=== PATIENT | female | born 1965 | race Caucasian/White ===

== ENCOUNTER → 2022-08-02 | Day surgery (SDC) | payer OTHER ==
[~2022-08-02] MED LIST: LIDOCAINE HCL 2% LOCAL INJ 5 ML SDV VIAL INJ ONE; NP THYROID60 MG PO; PROPOFOL IV EMULSION 10 MG/ML 50 ML VIAL IV ONE; PROPOFOL IV EMULSION 50 ML IV ONE
== END | disposition home or self-care (01) ==
LOC: ENDO 07:03
PROVIDERS: ATTEND Surgery
DX: K21.9 Gastro-esophageal reflux disease without esophagitis (principal); K29.50 Unspecified chronic gastritis without bleeding; K20.90 Esophagitis, unspecified without bleeding; K44.9 Diaphragmatic hernia without obstruction or gangrene; E03.9 Hypothyroidism, unspecified; I10 Essential (primary) hypertension; E78.5 Hyperlipidemia, unspecified; E66.01 Morbid (severe) obesity due to excess calories; J30.2 Other seasonal allergic rhinitis; R06.02 Shortness of breath; Z01.810 Encounter for preprocedural cardiovascular examination; Z79.899 Other long term (current) drug therapy; Z68.34 Body mass index [BMI] 34.0-34.9, adult
CPT/HCPCS: 43239; 88305; 88342; 93005; J2001; J2704; 43235

== ENCOUNTER 2022-09-06 08:13 | Observation (INO) | payer OTHER ==
[2022-09-01 14:50] LABS: BASOPHILS % 0.6 % (0.0-1.0); EOSINOPHILS # (AUTO) 0.3 (0.0-0.4); EOSINOPHILS % 3.8 % (0.0-6.0); HEMATOCRIT 43.3 % (34.2-44.1); HEMOGLOBIN 14.1 g/dL (12.0-16.0); LYMPHOCYTES # (AUTO) 1.7 (1.0-3.2); LYMPHOCYTES % 25.8 % (18.0-39.1); MEAN CORPUSCULAR HEMOGLOBIN 31.4 pg (28-32); MEAN CORPUSCULAR HGB CONC 32.6 g/dL (31-35); MEAN CORPUSCULAR VOLUME 96.4 fL (81-99); MONOCYTES # (AUTO) 0.4 (0.2-0.8); MONOCYTES % 6.1 % (4.4-11.3); NEUTROPHILS # (AUTO) 4.2 (2.1-6.9); NEUTROPHILS % 63.5 % (38.7-80.0); PLATELET COUNT 235 x10e3/uL (140-360); RED BLOOD COUNT 4.49 x10e6/uL (3.6-5.1)
[~2022-09-06] VITALS: Ht 177.8 cm; Wt 99.8 kg
[~2022-09-06 08:13] MED LIST changes: +ACETAMINOPHEN 1000 MG/100 ML 100 ML IV ONE; +BUPIVACAINE 0.25% 30ML SDV ONE; +BUPIVACAINE 0.5%/EPI 30 ML SDV INJ ONE; +CEFAZOLIN SODIUM 2 GM ONE; +FLONASE ALLERG9.9 ML INH; +LACTATED RINGER'S 1,000 ML ONE; -LIDOCAINE HCL 2% LOCAL INJ 5 ML SDV VIAL INJ ONE; -PROPOFOL IV EMULSION 10 MG/ML 50 ML VIAL IV ONE; -PROPOFOL IV EMULSION 50 ML IV ONE; +SCOPOLAMINE 1 MG PATCH ONE; +SCOPOLAMINE 1 MG PATCH TOP SCH; +SINGULAIR4 MG PO; +SUGAMMADEX SODIUM 200 MG/2 ML VIAL IV ONE; +ZYRTEC10 M3 PO
[2022-09-06] MEDS ORDERED: FENTANYL CITRATE/PF 100MCG/2 ML INJ ONE ×2 (10:30→13:38)
[2022-09-06] MEDS ORDERED: ONDANSETRON HCL INJ 2MG/ML 2ML 2 MG/ML VIAL ONE ×2 (10:47→12:30)
[2022-09-06 11:00] VITALS: BP 112/69
[2022-09-06] MEDS: LACTATED RINGER'S 1,000 ML IV SCH ×3 (11:00→21:40)
[2022-09-06] MEDS ORDERED: FIBRIN FROZEN 2 ML SPRAY.GEL TOP ONE (11:01)
[2022-09-06] MEDS ORDERED: FLUTICASONE PROPIONATE NASAL SPRAY NS PRN (12:15)
[2022-09-06] MEDS ORDERED: POVIDONE IODINE 0.05% 0.05 % ML PO ONE (12:30)
[2022-09-06] MEDS ORDERED: ALBUTEROL SULFATE HFA 8GM INHALATION AEROSOL INH ONE (12:30)
[2022-09-06] MEDS ORDERED: LIDOCAINE HCL 2% LOCAL INJ 5 ML SDV VIAL INJ ONE (12:30)
[2022-09-06] MEDS ORDERED: ROCURONIUM BROMIDE 10 MG/ML 5ML VIAL IV ONE (12:30)
[2022-09-06] MEDS ORDERED: PROPOFOL IV EMULSION 10 MG/ML 20 ML VIAL ONE (12:30)
[2022-09-06] MEDS ORDERED: DEXAMETHASONE SOD PHOS INJ 4 MG/ML SDV ONE (12:30)
[2022-09-06] MEDS ORDERED: SEVOFLURANE INHAL SOLN 250 ML PEN BTL ONE (12:30)
[2022-09-06] MEDS: ONDANSETRON HCL INJ 2MG/ML 2ML 2 MG/ML VIAL IV PRN ×2 (14:17→21:39)
[2022-09-06] MEDS: Morphine 2mg Syringe 2 MG/ML SYR IV PRN ×3 (14:18→21:39)
[2022-09-06 16:30] VITALS: BP 128/74
[2022-09-06 20:00] VITALS: BP 134/84
[2022-09-06] MEDS: ENOXAPARIN SOD INJ 40 MG/0.4 ML SYR SC SCH (20:00)
[2022-09-07] VITALS: BP 138/77
[2022-09-07] MEDS: Morphine 2mg Syringe 2 MG/ML SYR IV PRN (00:09)
[2022-09-07] MEDS: HYDROCODONE/APAP 7.5MG-325MG 1 EA TAB PO PRN ×2 (03:18→08:31)
[2022-09-07 04:00] VITALS: BP 122/70
[2022-09-07] MEDS: ONDANSETRON HCL INJ 2MG/ML 2ML 2 MG/ML VIAL IV PRN ×2 (04:32→09:40)
[2022-09-07 04:58] LABS: BASOPHILS % 0.2 % (0.0-1.0); EOSINOPHILS % 0.1 % (0.0-6.0); HEMATOCRIT 37.1 % (34.2-44.1); HEMOGLOBIN 12.4 g/dL (12.0-16.0); LYMPHOCYTES # (AUTO) 1.6 (1.0-3.2); LYMPHOCYTES % 13.9 % (18.0-39.1); MEAN CORPUSCULAR HEMOGLOBIN 31.7 pg (28-32); MEAN CORPUSCULAR HGB CONC 33.4 g/dL (31-35); MEAN CORPUSCULAR VOLUME 94.9 fL (81-99); MONOCYTES % 9.1 % (4.4-11.3); NEUTROPHILS # (AUTO) 8.6 (2.1-6.9); NEUTROPHILS % 76.3 % (38.7-80.0); PLATELET COUNT 217 x10e3/uL (140-360); RED BLOOD COUNT 3.91 x10e6/uL (3.6-5.1)
[2022-09-07 05:27] LABS: ALBUMIN 3.3 g/dL (3.5-5.0); ANION GAP 14.1 mmol/L (8-16); CALCIUM 8.5 mg/dL (8.4-10.2); CREATININE, SERUM 0.74 mg/dL (0.57-1.11); POTASSIUM 4.1 mmol/L (3.5-5.1)
[2022-09-07] MEDS: THYROID 60 MG TAB PO SCH ×2 (06:24→08:30)
[2022-09-07] MEDS: LACTATED RINGER'S 1,000 ML IV SCH (06:26)
[2022-09-07] MEDS: ENOXAPARIN SOD INJ 40 MG/0.4 ML SYR SC SCH (07:36)
[2022-09-07 08:00] VITALS: BP 123/77
[2022-09-07] MEDS ORDERED: MONTELUKAST SODIUM 10 MG TAB PO SCH (09:00)
[2022-09-07] MEDS ORDERED: LORATADINE 10 MG TAB PO SCH (09:00)
[2022-09-07 09:02] VITALS: BP 123/77
== END 2022-09-07 09:58 | disposition home or self-care (01) ==
LOC: OR 08:13 → PACU V 08:14 → MED/SURG 10:55
PROVIDERS: ADMIT Internal Medicine; ATTEND Internal Medicine
DX: E66.01 Morbid (severe) obesity due to excess calories (principal); K44.9 Diaphragmatic hernia without obstruction or gangrene; K21.9 Gastro-esophageal reflux disease without esophagitis; Z68.32 Body mass index [BMI] 32.0-32.9, adult; Z20.822 Contact with and (suspected) exposure to COVID-19
CPT/HCPCS: 0223U; 36415 ×2; 43280; 43644; 80053; 83735; 84100; 85025 ×2; 94799 ×2; C1713; G0378 ×2; J0131; J1100; J1650; J2001; J2270 ×2; J2405 ×2; J2704; J3010; J7121 ×2